=== PATIENT | male | born 2000 | race Asian ===

== ENCOUNTER 2020-05-02 18:51 | Emergency (ER) | payer BC ==
[~2020-05-02] VITALS: Ht 180.3 cm; Wt 77.1 kg
[2020-05-02 19:29] LABS: PLATELET COUNT 216 K/uL (142-355)
[2020-05-02 19:45] LABS: POTASSIUM 4.1 mmol/L (3.6-5.2)
[2020-05-02 21:49] VITALS: BP 105/62; TEMP 98.2
== END 2020-05-02 21:49 | disposition still patient (30) ==
LOC: ED 18:51
PROVIDERS: Hospitalist
DX: K52.89 Other specified noninfective gastroenteritis and colitis (principal); R11.2 Nausea with vomiting, unspecified; R19.7 Diarrhea, unspecified; E80.6 Other disorders of bilirubin metabolism
CPT/HCPCS: 80053; 81000; 82150; 83690; 85027; 96360; 96365; 96366; 96376; 99284; J1956; J2405